=== PATIENT | female | born 1955 | race Caucasian/White ===

== ENCOUNTER → 2022-10-10 13:16 | Outpatient (CLI) | payer MEDICARE, OTHER, SELFPAY ==
--- NOTE | 2022-10-10 | DI.CT.S_ITS ---
PROCEDURE: CT LUMBAR SPINE WO CON INDICATIONS: RADICULOPOTHY TECHNIQUE: Noncontrast 3 mm thick sections acquired from the T12 level to the sacrum. Sagittal and coronal reformats were constructed. For radiation dose reduction, the following was used: automated exposure control. COMPARISON: [facility], MR, MR LUMBAR SPINE WITHOUT CONTRAST, 10/12/2020, 14:15. FINDINGS: Image quality: Excellent. Bones: Interbody fusion at L1-L2. Significant interval increase in anterolisthesis of L4 on L5, previously measuring approximately 8 mm and currently measuring approximately 10 mm. Interval auto fusion at L5-S1. No acute vertebral body compression fractures. No suspicious lytic or blastic bony lesions. No pars defects. T12-L1: No canal stenosis or foraminal stenosis. L1-L2: Interbody fusion. Posterior osteophyte. No significant canal stenosis. Moderate to severe bilateral foraminal stenosis with a degree of bilateral foraminal L1 nerve root impingement. L2-L3: No significant canal stenosis or foraminal stenosis. L3-L4: Disc bulge. Facet hypertrophy. Mild canal stenosis. Mild bilateral foraminal stenosis. L4-L5: Interval increase of anterolisthesis of L4 on L5, measuring 10 mm. There is severe canal stenosis secondary to anterolisthesis of L4 on L5, posterior disc bulge, and prominent bilateral facet and ligament hypertrophy. Interval progression of bilateral foraminal narrowing. There may be disc protrusion in the right foramen. There is severe bilateral foraminal narrowing with bilateral foraminal L4 nerve root impingement. L5-S1: Disc bulge. Facet hypertrophy. No significant canal stenosis. Mild bilateral foraminal stenosis. Soft tissues: No retroperitoneal masses or hematomas. Visualized aorta is normal in caliber. IMPRESSION: 1. Progressive findings at L4-L5. Prominent bilateral facet and ligament hypertrophy with increase in anterolisthesis of L4 on L5 resulting in severe canal stenosis and severe bilateral foraminal stenosis. Right foraminal stenosis may include the presence of a right foraminal disc protrusion. 2. Multilevel facet hypertrophy. 3. Interbody fusion at L1-L2. Dictated by: Keith Delgado M.D. on 10/11/2022 at 0:05 Approved by: Keith Delgado M.D. on 10/11/2022 at 0:17
--- NOTE | 2022-10-10 | DI.RAD.S_ITS ---
PROCEDURE: XR LUMBAR SPINE 2-3V INDICATIONS: BACK PAIN TECHNIQUE: 3 views of the lumbar spine were acquired. COMPARISON: [facility] [place], CR, XR LUMBAR SPINE WITH OLBIQUES PLUS FLEXION EXTENSION, 01/04/2021, 15:52. [facility], CT, CT LUMBAR SPINE WITHOUT CONTRAST, 10/25/2019, 15:04. [facility], CT, CT LUMBAR SPINE WO CON, 10/10/2022, 13:42. FINDINGS: Bones: 5 [id number] vertebrae are present. Anterolisthesis of L4 on L5 measures 11 mm. Remote interbody fusion at L1-L2. No vertebral body compression fractures. No suspicious bony lesions. Soft tissues: Overlying bowel gas pattern is normal. No suspicious soft tissue calcifications. IMPRESSION: 1. 11 mm anterolisthesis of L4 on L5. 2. No evidence acute bony abnormality. If clinical suspicion and/or symptoms persist, further assessment with repeat plain films, or advanced imaging (e.g., CT, MRI, or bone scan) may be helpful for further assessment. Dictated by: Keith Delgado M.D. on 10/10/2022 at 16:40 Approved by: Keith Delgado M.D. on 10/10/2022 at 16:45
== END ==
PROVIDERS: PCP Registered Nurse; Referring Provider Physician Assistant Medical; Visit Provider Physician Assistant Medical
DX: M43.16 Spondylolisthesis, lumbar region (principal); M54.16 Radiculopathy, lumbar region; M46.06 Spinal enthesopathy, lumbar region; M47.816 Spondylosis without myelopathy or radiculopathy, lumbar region; M48.061 Spinal stenosis, lumbar region without neurogenic claudication; Z98.1 Arthrodesis status
CPT/HCPCS: 72100; 72131

== ENCOUNTER → 2022-12-27 13:52 | Outpatient (CLI) | payer MEDICARE, OTHER, SELFPAY ==
--- NOTE | 2022-12-27 | DI.RAD.S_ITS ---
PROCEDURE: XR LUMBAR SPINE MIN 4V INDICATIONS: SPONDYLOLISTHEISI OF LUMBAR REGION TECHNIQUE: 5 views of the lumbar spine acquired, including flexion and extension views. COMPARISON: [facility], , XR LUMBAR SPINE 2-3V, 10/10/2022, 13:32. FINDINGS: Bones: 5 nonrib-bearing vertebrae are present. 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 Trace left lateral subluxation L2 on three. Mild lateral subluxation L4-5. There is grade 2 anterolisthesis L4-5, 1.4 cm in the neutral position. No vertebral body compression fractures. No suspicious bony lesions. Soft tissues: Overlying bowel gas pattern is normal. No suspicious soft tissue calcifications. Flexion/extension: There is limited range of motion in flexion and extension. Degree of spondylolisthesis at L4-5 remains stable in extension. Given technical artifact, accurate measurement of anterolisthesis in flexion is unable to be made but felt remain grossly stable. IMPRESSION: 1. Stable grade 2 L4-5 spondylolisthesis. No evidence of dynamic instability. No significant change compared to the prior exam. Dictated by: Marium King M.D. on 12/27/2022 at 20:57 Approved by: Marium King M.D. on 12/27/2022 at 21:05
== END ==
PROVIDERS: PCP Registered Nurse; Referring Provider Nurse Practitioner Family; Visit Provider Nurse Practitioner Family
DX: M48.062 Spinal stenosis, lumbar region with neurogenic claudication (principal); M43.16 Spondylolisthesis, lumbar region
CPT/HCPCS: 72110